=== PATIENT | male | born 1960 | race Caucasian/White ===

== ENCOUNTER → 2016-12-12 | Outpatient (CLI) | payer MEDICARE, MEDICAID ==
--- NOTE | 2016-12-12 10:51 | CT ---
EXAM DESCRIPTION: Abdomen/Pelvis w/wo Contrast CLINICAL HISTORY: INCARCERATED UMBILICAL HERNIA COMPARISON: None. TECHNIQUE: CT of the abdomen and pelvis was performed before and after intravenous contrast. Multiple axial images and multiplanar reconstructions were generated. This exam was performed according to our departmental dose-optimization program, which includes automated exposure control, adjustment of the mA and/or kV according to patient size and/or use of iterative reconstruction technique. FINDINGS: Lung bases: The visualized lung bases are clear. Solid organs: Hepatic steatosis present. Calcified granulomas in the spleen. In the left retroperitoneal space, there is an irregularly-shaped somewhat lobulated 2.1 x 2.2 x 2.6 cm soft tissue density which demonstrates some enhancement on postcontrast imaging. It measures 56 Hounsfield units on precontrast imaging, and 74 Hounsfield units on postcontrast imaging. There is an apparent fat plane in between the posterior cortex of the left kidney. Pancreas, gallbladder, right kidney, and adrenal glands are unremarkable. Gastrointestinal: The stomach and small intestine are unremarkable. Colonic diverticulosis is present without CT evidence for diverticulitis. The appendix is normal. No free fluid or free air. Vascular: Mild calcific plaque in the abdominal aorta and its major branches. Lymph nodes: No pathologically enlarged lymph nodes are present by CT size criteria. Musculoskeletal and soft tissues: There is a fat-containing umbilical hernia 3 2.1 cm abdominal wall defect. The hernia sac measures 10 x 10 cm in greatest extent. In the anterior mesenteric fat adjacent to the hernia, there is mildly increased linear densities, likely a mesenteric infarct. Urinary bladder and pelvic organs: The urinary bladder is normal. The prostate is normal in size. IMPRESSION: 1. Indeterminate enhancing soft tissue density in the posterior left retroperitoneal space. This is indeterminate, but is concerning for a soft tissue neoplasm. Tissue sampling is recommended. 2. Large fat-containing ventral hernia. 3. Increased density in the anterior mesenteric fat, most likely secondary to an age-indeterminate mesenteric infarct. Neoplastic involvement is felt to be less likely but not completely excluded. 4. Other findings as above. Electronically signed by: Mark Michaels MD 12/12/2016 10:51 AM CDT
== END | disposition home or self-care (01) ==
LOC: CT 08:43
PROVIDERS: ATTEND Surgery
DX: K42.0 Umbilical hernia with obstruction, without gangrene (principal)

== ENCOUNTER 2017-01-25 05:51 | Day surgery (SDC) | payer MEDICARE, MEDICAID ==
--- NOTE | 2017-01-21 10:50 | RAD ---
EXAM DESCRIPTION: Chest,2 Views CLINICAL HISTORY: pre op COMPARISON: None available FINDINGS: The cardiomediastinal silhouette is unremarkable. There is subsegmental atelectasis or scarring in both lung bases, but no airspace consolidation or pleural effusion is identified. The bronchovascular markings are within normal limits, and the lungs are not hyperinflated. There is no pneumothorax or acute fracture. IMPRESSION: Bibasilar subsegmental atelectasis or scarring, but no acute intrathoracic abnormality. Electronically signed by: Wade Weir MD 01/21/2017 10:49 AM CDT Workstation: [facility]
[2017-01-25] MEDS ORDERED: MIDAZOLAM INJ 5 MG/5 ML VIAL IV ONE (08:38)
[2017-01-25] MEDS ORDERED: fentaNYL CITRATE INJ 50 MCG/ML AMP IV ONE (08:38)
[2017-01-25] MEDS ORDERED: ROCURONIUM BROMIDE 10 MG/ML VIAL IV ONE (08:38)
[2017-01-25] MEDS ORDERED: BUPIVACAINE 0.25% W/EPI 50 ML VIAL INJ ONE (08:45)
[2017-01-25] MEDS ORDERED: LACTATED RINGERS 1,000 ML ONE (09:02)
[2017-01-25] MEDS ORDERED: SODIUM CHL 0.9% 100ML MINI-BAG 100 ML IVPB ONE ×2 (09:03→12:14)
[2017-01-25] MEDS ORDERED: ceFAZolin SODIUM 1 GM VIAL ONE ×2 (09:03→12:15)
[2017-01-25] MEDS ORDERED: ACETAMINOPHEN IV 1000MG 100 ML ONE (09:51)
[2017-01-25] MEDS ORDERED: ELECTROLYTE-A 1,000 ML IVS ONE (11:06)
[2017-01-25] MEDS ORDERED: METOCLOPRAMIDE HCL INJ 10 MG/2 ML VIAL IV ONE (12:00)
[2017-01-25] MEDS ORDERED: PROPOFOL 200 MG/20 ML VIAL IV ONE (12:00)
[2017-01-25] MEDS ORDERED: PHENYLEPHRINE INJ 1ML 10 MG/ML VIAL IV ONE (12:00)
[2017-01-25] MEDS ORDERED: raNITIdine HCL INJ 25 MG/ML VIAL IV ONE (12:00)
[2017-01-25] MEDS ORDERED: SODIUM CHLORIDE 0.9% 50 ML VIAL INJ ONE (12:00)
[2017-01-25] MEDS ORDERED: LIDOCAINE 1% 10 ML VIAL INJ ONE (12:00)
[2017-01-25] MEDS ORDERED: KETOROLAC TROMETHAMINE INJ 30 MG/ML VIAL IV ONE (12:00)
[2017-01-25] MEDS ORDERED: DEXAMETHASONE INJ 10 MG/ML VIAL IV ONE (12:00)
[2017-01-25] MEDS ORDERED: ePHEDrine SULF 50 MG/ML IV ONE (12:00)
[2017-01-25] MEDS ORDERED: ceFAZolin SODIUM 1 GM VIAL IVPB ONE (12:20)
[2017-01-25] MEDS ORDERED: MORPHINE SULFATE INJ 10 MG/ML VIAL ONE (12:22)
[2017-01-25] MEDS ORDERED: MORPHINE SULFATE INJ 10 MG/ML VIAL IV ONE ×2 (12:26→12:36)
--- NOTE | 2017-01-25 13:17 | OP ---
DATE OF PROCEDURE: 01/25/17 PREOPERATIVE DIAGNOSIS: 1. Incarcerated umbilical hernia. POSTOPERATIVE DIAGNOSIS: 1. Incarcerated umbilical hernia. PROCEDURE: 1. Repair of incarcerated umbilical hernia with a Surgimesh Onlay graft and partial omentectomy. SURGEON: Jerry Baldwin MD. LOADERS: None. ANESTHESIA: Local infiltration of 0.25% Marcaine with epinephrine and general endotracheal anesthesia. INDICATION: The patient is a 56-year-old male who has had a tender mass at his umbilicus for some time. It has gotten larger and more uncomfortable. He was brought to the [facility] today for surgical repair after the risks, benefits and alternatives to the procedure were discussed and accepted and his blood sugars were normalized by moving to a sliding scale regular insulin regimen. He also received Ancef preoperatively. FINDINGS: The patient was noted to have omentum incarcerated and adhesed into the umbilical hernia sac. The neck was approximately 2 to 2.5 cm in diameter. It was extended 0.5 cm in an attempt to reduce it, but this was impossible, so a large amount of omentum the size of a large orange or grapefruit was excised using clamps and ligatures of 2-0 Vicryl. No other significant pathology was identified. PROCEDURE: After adequate general endotracheal anesthesia was obtained, the patient was prepped and draped in the usual sterile manner after a surgical time -out was taken. An elliptical incision was fashioned under the umbilicus, first with marking pen and then with infiltration of anesthesia. A knife was used to incise the skin and then dissection was carried down through the skin and subcutaneous tissue to the midline fascia using blunt dissection and some electrocautery. The hernia was identified and was dissected free circumferentially with blunt dissection and electrocautery. When this was done , attempts were made to reduce the hernia, however, this failed. Eventually, the neck was loosened at the superior margin and electrocautery was used to length the incision approximately 5 mm. There was no improvement in ability to reduce it. At this point, the hernia sac was opened. The omentum was dissected free from multiple adhesions to the wall of the hernia sac. Still we were unable to reduce this, so at this point the omentum was transected at the base with clamps and ligatures of 2-0 Vicryl and then reduced below the floor of the abdominal cavity. The omentum was then sent for pathologic evaluation. The hernia sac was transected at the level of the fascia. At this point, the fascia was reapproximated in a vertical manner with interrupted [id number] sutures of #1 PDS. These were placed sequentially and then tightened and tied sequentially. When this was done, the fat overlying the fascia was dissected free using electrocautery, superiorly, inferiorly and laterally on both sides so that the 10 x 5 cm oval mesh could be sutured over the repair. This was done with interrupted 2-0 Vicryl and 2-0 Prolene sutures. When this was done, the wound was irrigated copiously with saline. Hemostasis was noted to be adequate. The umbilicus was then sutured to the fascia just to the right of the midline with a single [id number] suture of 2-0 Prolene. A 15 Pashto round PATT drain was introduced from inferior into the right side of the incision , sutured in place with 3-0 Nylon ligature. When this was done, the subcutaneous tissue was reapproximated in two layers of 2-0 and 3-0 Vicryl sutures. The wound was then irrigated down through the fascia and aspirated using the drain. The drain was then cut to appropriate length. The grenade was connected. The skin edges were approximated with skin stapler. Sterile pressure dressing was applied. Abdominal binder was applied. The patient was awakened and taken to the Recovery Room in good and stable condition. Estimated blood loss was 75 to 100 mL. All sponge, needle and instrument counts were correct. #[id number] [facility]
[2017-01-25 14:40] VITALS: BP 136/83; TEMP 96.2; O2SAT 97
== END 2017-01-25 14:00 | disposition home health service (06) ==
LOC: AMB 05:51
PROVIDERS: ATTEND Surgery
DX: K42.0 Umbilical hernia with obstruction, without gangrene (principal); E11.9 Type 2 diabetes mellitus without complications; I10 Essential (primary) hypertension; K59.00 Constipation, unspecified; R00.0 Tachycardia, unspecified; E66.01 Morbid (severe) obesity due to excess calories; J98.11 Atelectasis; Z79.84 Long term (current) use of oral hypoglycemic drugs; Z79.899 Other long term (current) drug therapy
CPT/HCPCS: 00840; 36415; 36416; 49587; 71020; 80053; 81001; 82948; 85025; 87086; 88302; 93005; A4216; C1781; J0690; J1100; J1885; J2250; J2270; J2765; J2780; J3010; J3490; J7050; J7120

== ENCOUNTER → 2018-03-13 | Outpatient (CLI) | payer MEDICARE, MEDICAID ==
--- NOTE | 2018-03-14 08:52 | CT ---
EXAM DESCRIPTION: Chest w/o Contrast : Computed Tomography. CLINICAL HISTORY: RIB PAIN LEFT SIDE COMPARISON: CT scan abdomen and pelvis with IV contrast on the same visit. TECHNIQUE: Spiral-axial scans at 5.5 mm intervals through the lungs and thorax without IV contrast. 2.5 mm lung algorithm helical axial reconstructions. Coronal and sagittal 2.0 Mm reconstructions. Total Exam DLP: 1000.09 mGy-cm. This exam was performed according to our departmental dose-optimization program which includes automated exposure control, adjustment of the mA and/or kV according to patient size and/or use of iterative reconstruction technique; to reduce radiation dose to as low as reasonably achievable (ALARA). FINDINGS: No abnormal nodules or masses. Small tree-in-bud markings in the base of the right lower lobe posterior to the diaphragm. Not seen on the left. Minimal pleural thickening bilaterally but no pleural effusion. No pneumothorax. Minimal perihilar peribronchial wall cuffing. Normal density of the left-sided ribs. No displacement. Minimal spondylosis at some levels of the thoracic spine. Cervical spondylosis as well. Evaluation of soft tissue Limited due to lack of IV contrast. No large soft tissue masses in the base of the neck mediastinum hilum or chest wall. Calcifications in the spleen. Gallbladder partially visualized. No subdiaphragmatic peritoneal fluid accumulation. IMPRESSION: 1. No rib abnormality on the left. Minimal bilateral pleural thickening in the bases. 2. Small region of tree-in-bud markings in the right lower lobe, posterior recess. This can be seen in mycobacterial infection, viral infection, fungal infection, and aspiration. Correlate with clinical findings. Electronically signed by: Giovanny Bridges MD 03/14/2018 8:51 AM CDT
--- NOTE | 2018-03-14 09:25 | CT ---
EXAM DESCRIPTION: Abdomen w/Contrast: Computed Tomography. CLINICAL HISTORY: RETROPERITONEAL MASS COMPARISON: CT scan of the abdomen and pelvis 12/12/2016 and December 27, [address]-guided abdominal biopsy 12/24/2016 at outside imaging facility. TECHNIQUE: Spiral-axial scans at 5 x 5 mm intervals through the abdomen, after nonionic IV contrast, delayed 5 minute scans. No oral contrast. Coronal and sagittal 2.0 mm reconstructions. No adverse reactions. Total Exam DLP: 1098.88 mGy-cm. This exam was performed according to our departmental CT dose-optimization program which includes automated exposure control, adjustment of the mA and/or kV according to patient size and/or use of iterative reconstruction technique; to reduce radiation dose to as low as reasonably achievable (ALARA). FINDINGS: Retroperitoneal: Again noted is a soft tissue density lobulated mass between the posterior left kidney and the posterior abdominal wall but no significant calcification and minimal enhancement. Dimensions are 2.7 cm craniocaudal and 2.5 x 1.6 cm in the axial plane. No significant change in size or appearance since the prior study. Biopsy in December 2016 was benign. Liver, Stomach, Spleen, Adrenal Glands: Stomach unremarkable. Liver upper normal in size. Other organs unremarkable. Pancreas, Gallbladder, Ducts: Gallbladder visualized. Ducts and pancreas negative. Kidneys: Unremarkable except for left pararenal mass described above. Mesentery: No free air or free fluid. No fatty stranding or fascial thickening. Aorta: Normal outer caliber with minimal atherosclerotic calcification of the bilateral common iliac arteries proximally. Small Bowel: Included segments are normal caliber. Terminal Ileum/Cecum: Normal caliber with fecal material. Appendix not seen. Colon: Rectosigmoid was not imaged. Remaining segments contain fecal matter with no significant distention or air-fluid levels. Spine: Lumbar levoscoliosis. Spondylosis from L3-4 down to L5-S1 and also minimal spondylosis in the thoracic spine. Abdominal Wall/Back Soft Tissues: Partial visualization of midline ventral hernia repair with soft tissue noted in the included repair site with no hernia sac or air is seen anterior to the abdominal wall. IMPRESSION: 1. 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 Biopsy was benign. No new mass or fluid in the peritoneum. 2. Spondylosis from L3-4 down to L5-S1. Electronically signed by: Giovanny Bridges MD 03/14/2018 9:24 AM CDT
== END ==
LOC: CT 11:00
DX: R19.09 Other intra-abdominal and pelvic swelling, mass and lump (principal); R07.81 Pleurodynia

== ENCOUNTER → 2019-03-03 | Outpatient (CLI) | payer MEDICARE, MEDICAID ==
--- NOTE | 2019-03-04 11:59 | CT ---
EXAM DESCRIPTION: Abdomen w/wo Contrast: Computed Tomography. CLINICAL HISTORY: LT UPPER QUAD PAIN COMPARISON: CT scan of the abdomen with IV contrast 03/13/2018. TECHNIQUE: Spiral-axial scans at 5 x 5 mm intervals, from the diaphragms through the upper pelvis, before and after 75 mL of Optiray 320 nonionic IV contrast. No oral contrast. Coronal and sagittal 2.0 mm reconstructions in the portal venous phase. 5 mm, 5 minute Delayed scans, liver through the upper pelvis. No adverse reactions. DLP 1754.94 mGy-cm. This exam was performed according to our departmental CT dose-optimization program which includes automated exposure control, adjustment of the mA and/or kV according to patient size and/or use of iterative reconstruction technique; to reduce radiation dose to as low as reasonably achievable (ALARA). FINDINGS: Lung bases and pleura: Negative. Liver, stomach, adrenal glands, and spleen: Splenic calcifications but normal size and enhancement, otherwise Unremarkable. Pancreas/Gallbladder/Ducts: Gallbladder visualized, negative. Kidneys and Ureters: Lobulated soft tissue density mass measuring 2.77 cm in the coronal plane and 2.2 x 1.5 cm in the transverse plane in the pararenal space just posterior to the left kidney. No enhancement or calcification. Similar size and appearance on the prior study. No surrounding inflammatory changes. Bilateral kidneys are unremarkable. Mesentery: No acute changes. Aorta: Minimal atherosclerotic calcification of the bilateral proximal common iliac arteries. Small Bowel: Incompletely visualized with included segments unremarkable. Terminal Ileum/Cecum: Normal caliber. Appendix not seen. Colon: Single diverticulum ascending colon. Incompletely visualized with a single diverticulum on the lateral wall of the descending colon. Spine: Spondylosis at multiple levels in the included thoracic spine, and the inferior lumbar spine. Abdominal Wall/Back Soft Tissues: Negative. IMPRESSION: 1. Lobulated nonenhancing retroperitoneal/left posterior pararenal space mass stable in size over one year interval with no calcification and no surrounding fatty inflammatory reaction or fluid. 2. Minimal diverticulosis without complication in the included colon. Electronically signed by: Giovanny Bridges MD 03/04/2019 11:58 AM CDT
== END ==
LOC: LAB.O 12:28
PROVIDERS: ATTEND Surgery
DX: R10.12 Left upper quadrant pain (principal); R19.09 Other intra-abdominal and pelvic swelling, mass and lump; K57.30 Diverticulosis of large intestine without perforation or abscess without bleeding